=== PATIENT | female | born 1960 | race Caucasian/White ===

== ENCOUNTER 2020-09-21 08:18 | Observation (INO) | payer BC ==
[2020-09-21 11:00] VITALS: BMI 26.9
[2020-09-21] MEDS ORDERED: Acetaminophen 325 MG TAB PO PRN (11:06)
--- NOTE | 2020-09-21 11:26 | PDOC.HHP ---
Hospitalist HPI - History of Present Illness Chest pain History of Present Illness: Patient is a pleasant 60-year-old lady who was seen at the hospital on September 21, 2020 following transfer from emergency room at [place]. She reports that she was woken up from sleep around 4:30 AM because of chest d iscomfort. It was in the retrosternal region, pressure-like sensation, 4-5 out of 10, radiating across the chest but not to her jaw or shoulder. She denies any nausea or vomiting but reports that it was accompanied by shortness of breath. It lasted till she reached the emergency room, then resolved subsequently recurred twice. She cannot recall any aggravating or relieving factors. She reports that she has not had similar pain in the past. She did have a stress test about 20 years ago following a syncopal episode. She also reports being under more stress at this time. ED Course: VITAL SIGNS SatSep 21, 2020 08:43 CASSANDRA Fitzgerald, Yuridia BP: 108/63, Pulse: 62, Resp: 18, Temp: 98.1, Pain: 0, O2 sat: 99, Time: 09/21/2020 08:43. Hospitalist ROS - Review of Systems Constitutional: denies: fever, chills, sweats, weakness, malaise Respiratory: reports: shortness of breath. denies: cough, dry, hemoptysis, SOB with excertion, pleuritic pain, sputum, wheezing Cardiovascular: reports: chest pain. denies: palpitations, orthopnea, paroxysmal noc. dyspnea, edema, light headedness Gastrointestinal: denies: nausea, vomiting, abdominal pain, diarrhea, constipation, melena, hematochezia Genitourinary: denies: dysuria, frequency, incontinence, hematuria, retention All other systems reviewed; all pertinent +/- noted in HPI/Subj - Medication Medications: Allergies: Penicillin and sulfa Home medications: aspirin oral SatSep 21, 2020 06:08 CASSANDRA Wright Jeri TABLET : Strength - 81 mg : ORAL Patient Dose: 1 tab(s) Oral once a day. atorvastatin SatSep 21, 2020 06:08 CASSANDRA Wright Jeri TABLET : Strength - 40 mg : ORAL Patient Dose: 1 tab(s) Oral once a day (at bedtime). citalopram SatSep 21, 2020 06:08 CASSANDRA Wright Jeri TABLET : Strength - 20 mg : ORAL Patient Dose: 40 mg Oral once a day. Januvia SatSep 21, 2020 06:08 CASSANDRA Wright Jeri TABLET : Strength - 100 mg : ORAL Patient Dose: unk mg Oral once a day. levothyroxine oral SatSep 21, 2020 06:08 CASSANDRA Wright Jeri TABLET : Strength - 25 mcg : ORAL Patient Dose: 50 mcg Oral once a day. metFORMIN SatSep 21, 2020 06:08 CASSANDRA Wright Jeri TABLET : Strength - 500 mg : ORAL Patient Dose: 2 tab(s) Oral once a day (in the morning). traZODone SatSep 21, 2020 06:08 CASSANDRA Wright Jeri TABLET : Strength - 50 mg : ORAL Patient Dose: 1 tab(s) Oral once a day (in the morning). Benicar SatSep 21, 2020 06:15 CASSANDRA Wright Jeri TABLET : Strength - 20 mg : ORAL Patient Dose: 40 mg Oral once a day (in the morning). DULoxetine SatSep 21, 2020 06:15 CASSANDRA Wright Jeri CAPSULE,DELAYED RELEASE (ENTERIC COATED) : Strength - 60 mg : ORAL Patient Dose: 60 mg Oral once a day (at bedtime). famotidine oral SatSep 21, 2020 06:15 CASSANDRA Wright Jeri TABLET : Strength - 20 mg : ORAL Patient Dose: 20 mg Oral once a day. meloxicam SatSep 21, 2020 06:15 CASSANDRA Wright Jeri TABLET : Strength - 15 mg : ORAL Patient Dose: 1 tab(s) Oral once a day. Xyzal SatSep 21, 2020 06:15 CASSANDRA Wright Jeri TABLET : Strength - 5 mg : ORAL Patient Dose: 5 mg Oral once a day. Hospitalist History - Past Medical History Other Medical History: Past medical history: Hypothyroidism, dyslipidemia, hypertension and ischemic CVA, Diabetes mellitus type 2 Surgical history: Surgery for deviated nasal septum, tonsillectomy and hysterectomy. Family history: No family history of premature coronary artery disease Social history: Occasional alcohol use, no tobacco use or recreational drug use. - Exam General Appearance: NAD Eye: anicteric sclera ENT: no oropharyngeal lesions, moist mucosa Neck: supple, symmetric, no thyromegaly, no lymphadenopathy Heart: RRR, no murmur, no gallops, no rubs, normal peripheral pulses Respiratory: CTAB, no wheezes, no rales, no ronchi, normal chest expansion Gastrointestinal: soft, non-tender, non-distended, normal bowel sounds Neurological: cranial nerve grossly intact Psychiatric: normal affect, normal behavior, A&O x 3 Hospitalist Results - Labs Additional comment: I reviewed patient's labs and MAR - EKG Interpretation EKG: EKG by my review shows normal sinus rhythm, no ST changes to suggest an acute coronary syndrome. - Radiology Interpretation Chest x-ray Status: image reviewed by me Additional Comment: XR Chest 1 View Portable HISTORY: Chest pain COMPARISON: None FINDINGS: The heart size is normal. The lungs are well expanded without focal areas of consolidation, pneumothorax or pleural effusions. IMPRESSION: No radiographic evidence of acute cardiopulmonary process. Hospitalist H&P A/P - Problem (1) Chest pain Code(s): R07.9 - CHEST PAIN, UNSPECIFIED Status: Acute (2) Dyslipidemia Code(s): E78.5 - HYPERLIPIDEMIA, UNSPECIFIED Status: Chronic (3) Hypertension Code(s): I10 - ESSENTIAL (PRIMARY) HYPERTENSION Status: Chronic (4) Diabetes mellitus type 2 in nonobese Code(s): E11.9 - TYPE 2 DIABETES MELLITUS WITHOUT COMPLICATIONS Status: Chronic (5) Hypothyroidism Code(s): E03.9 - HYPOTHYROIDISM, UNSPECIFIED Status: Chronic - Plan Plan: Admit patient to telemetry on observation status. Stress test. Continue aspirin. Continue Synthroid. Continue home medications, monitor vital signs and titrate antihypertensives as needed. Depression mild, stable, continue duloxetine. Continue Lipitor. Start Accu-Cheks and insulin sliding scale. Level of risk: High Level of complexity: High Estimated length of stay in the hospital less than 2 midnights.
[2020-09-21 12:17] LABS: Troponin I Less than 0.010 ng/mL (< 0.028)
[2020-09-21] MEDS ORDERED: Dextrose 50% Abboject 50 ML SYRINGE SLOW IVP PRN (12:23)
[2020-09-21] MEDS ORDERED: Dextrose 5% in Water 1,000 ML IV PRN (12:23)
[2020-09-21] MEDS ORDERED: HumaLOG 300 UNITS/3 ML VIAL SC PRN (12:23)
[2020-09-21 19:34] LABS: SARS-CoV-2 MS2 Positive; SARS-CoV-2 N Gene Negative; SARS-CoV-2 S Gene Negative; SARS-CoV-2 by NAA Not Detected (NotDetected); SARS-CoV-2 orf1ab Negative
[2020-09-21 19:40] LABS: Troponin I Less than 0.010 ng/mL (< 0.028)
[2020-09-21] MEDS ORDERED: Sodium Chloride 0.9% 10 ML ONE (20:40)
[2020-09-21] MEDS ORDERED: traZODone HCl 50 MG TAB PO SCH (21:00)
[2020-09-21] MEDS ORDERED: Atorvastatin Calcium 40 MG TAB PO SCH (21:00)
[2020-09-22 04:58] LABS: #Eosinphils 0.3 thou/uL (0.0-0.7); #Lymphocytes 2.5 thou/uL (1.20-3.40); #Monocytes 0.5 thou/uL (0.11-0.59); #Neutrophils 3.1 thou/uL (1.40-6.50); %Basophils 0.5 % (0.0-1.0); %Eosinophils 5.2 % (0.0-10.0); %Monocytes 7.2 % (0.0-10.0); %Neutrophils 48.1 % (42.0-75.0); Hemoglobin 12.8 g/dL (12.0-16.0); Mean Corpuscular HGB CONC 33.8 g/dL (32.0-36.0); Mean Corpuscular Hemoglobin 32.1 pg (27.0-31.0); Mean Platelet Volume 6.8 fL (7.4-10.4); Platelet Count 290 thou/uL (130-400); RBC Distribution Width 11.8 % (11.5-14.5); White Blood Cell (WBC) Count 6.4 thou/uL (4.8-10.8)
[2020-09-22 05:25] LABS: Anion Gap 14 mmol/L (10-20); BUN (Urea Nitrogen) 22 mg/dL (9.8-20.1); Calc. Creatinine Clearance 72 mL/min (70-130); Calcium 9.4 mg/dL (7.8-10.44); Carbon Dioxide 28 mmol/L (22-29); Chloride 103 mmol/L (98-107); Glucose 111 mg/dL (70-105); Potassium 4.8 mmol/L (3.5-5.1); Sodium 140 mmol/L (136-145)
[2020-09-22] MEDS ORDERED: Levothyroxine Sodium 25 MCG TAB PO SCH (06:00)
[2020-09-22] MEDS ORDERED: metFORMIN 500 MG TAB PO SCH (08:00)
[2020-09-22] MEDS ORDERED: Aspirin 81 mg Enteric Coated Tablet PO SCH (09:00)
[2020-09-22] MEDS ORDERED: Citalopram 20 MG TAB PO SCH (09:00)
[2020-09-22] MEDS ORDERED: Loratadine 10 MG TAB PO SCH (09:00)
[2020-09-22] MEDS ORDERED: Alogliptin 25 MG TAB PO SCH (09:00)
[2020-09-22] MEDS ORDERED: Famotidine 20 MG TAB PO SCH (09:00)
[2020-09-22] MEDS ORDERED: Losartan 25 MG TAB PO SCH (09:00)
[2020-09-22] MEDS ORDERED: Enoxaparin Sodium 40 MG/0.4 ML SYRINGE SC SCH (09:00)
[2020-09-22] MEDS ORDERED: Meloxicam 15 MG TAB PO SCH (09:00)
[2020-09-22] MEDS ORDERED: DULoxetine 60 MG CAP PO SCH (09:00)
[2020-09-22] MEDS ORDERED: FLU VACC QS2020-21(6MOS UP)/PF 60 MCG/0.5 ML SYRINGE IM ONE (11:15)
--- NOTE | 2020-09-22 11:22 | NM ---
CARDIAC SPECT: CLINICAL HISTORY: 60-year-old female with chest pain, hypertension, diabetes, and dyslipidemia. TECHNIQUE: A myocardial perfusion scan was performed using the single isotope two day protocol with 33 mCi techn etium-99m sestamibi injected intravenously for both stress and rest images. Pharmacologic stress with Adenosine was monitored and interpreted by Dr. Whitaker. FINDINGS: Homogeneous tracer distribution is seen in the myocardial segments on stress and rest images without fixed or reversible defects. GATED SPECT LVEF: 87%. WALL MOTION EXAM: Normal. IMPRESSION: Normal myocardial perfusion scan. POS: AH
[2020-09-22] MEDS ORDERED: ADENOSINE 60 MG/20 ML VIAL ONE (12:56)
[2020-09-22 15:13] VITALS: BP 121/74; TEMP 98.3
--- NOTE | 2020-09-22 16:37 | PDOC.DS.DS ---
Provider - Provider Date of Admission: 09/21/20 08:18 Date of Discharge: 09/22/20 Admitting Provider: Simon Douglass MD Primary Care Physician: OUT OF TOWN Course - Hospital Course Hospital Course: Discharge diagnosis: 1. Chest pain 2. Chest pain secondary to musculoskeletal etiology 3. Acute kidney injury 4. COVID-19 PCR test negative Hospital course: Patient is a pleasant 60-year-old lady who was admitted to the hospital on September 21, 2020 for chest pain. COVID-19 was ruled out with PCR test. Nuclear stress test was normal, with left ventricular ejection fraction of 87%. Her chest pain resolved following admission. Pulmonary embolism was ruled out with a negative D-dimer. She is being discharged home in a stable condition. Discharge destination: Home - Labs Lab Results: 09/22/20 04:08 09/22/20 04:09 Abnormal Lab Results - Last 48 hrs 09/22/20 04:08: RBC 4.00 L, MCH 32.1 H, MPV 6.8 L 09/22/20 04:09: BUN 22 H - Physical Exam Vitals: Vital Signs (12 hours) Temp Pulse Resp BP Pulse Ox 09/22/20 15:05 98.3 F 101 H 18 121/74 95 09/22/20 10:38 98.4 F 81 16 115/65 96 09/22/20 07:50 98.4 F 82 16 122/62 97 Weight Weight 152 lb Physical Exam: The patient was seen and examined on the day of discharge. Patient denies chest pain or shortness of breath. Vital signs are stable. S1 and S2 are heard. Lungs are clear to auscultation bilaterally. Problem - Problem (1) Chest pain Code(s): R07.9 - CHEST PAIN, UNSPECIFIED Status: Acute (2) Dyslipidemia Code(s): E78.5 - HYPERLIPIDEMIA, UNSPECIFIED Status: Chronic (3) Hypertension Code(s): I10 - ESSENTIAL (PRIMARY) HYPERTENSION Status: Chronic (4) Diabetes mellitus type 2 in nonobese Code(s): E11.9 - TYPE 2 DIABETES MELLITUS WITHOUT COMPLICATIONS Status: Chronic (5) Hypothyroidism Code(s): E03.9 - HYPOTHYROIDISM, UNSPECIFIED Status: Chronic Plan - Discharge Medications Home Medications: Medication Instructions Recorded Confirmed Type Aspirin [Ecotrin] 81 mg PO DAILY 09/21/20 09/21/20 History Atorvastatin Calcium [Lipitor] 40 mg PO HS 09/21/20 09/21/20 History Citalopram [CeleXA] 20 mg PO DAILY 09/21/20 09/21/20 History DULoxetine [Cymbalta] 60 mg PO DAILY 09/21/20 09/21/20 History Famotidine 20 mg PO DAILY 09/21/20 09/21/20 History Levocetirizine Dihydrochloride 5 mg PO DAILY 09/21/20 09/21/20 History [Xyzal] Levothyroxine Sodium 25 mcg PO DAILY 09/21/20 09/21/20 History [Levothyroxine] Meloxicam 15 mg PO DAILY 09/21/20 09/21/20 History Olmesartan Medoxomil [Benicar] 20 mg PO DAILY 09/21/20 09/21/20 History metFORMIN [Glucophage] 500 mg PO QAM-WM 09/21/20 09/21/20 History sitaGLIPtin Phosphate [Januvia] 100 mg PO DAILY 09/21/20 09/21/20 History traZODone HCl [Trazodone HCl] 50 mg PO HS 09/21/20 09/21/20 History Allergies: Penicillins Allergy (Verified 09/21/20 10:48) Sulfa (Sulfonamide Antibiotics) Allergy (Verified 09/21/20 10:48) - Discharge Instructions Activity:: Activity as Tolerated Nourishment:: Diabetic Diet, Heart Healthy Diet - Follow up Plan Referrals: TOWN PHYSICIAN,OUT OF [Primary Care Provider] - 3 Days (Please call the office to make an appointment to see your PCP within 3 days.) Disposition: HOME Quality - Care Measures CORE MEASURES:: N/A
== END 2020-09-22 17:20 | disposition home or self-care (01) ==
LOC: 2NO 08:18
PROVIDERS: ADMIT Internal Medicine; ATTEND Internal Medicine
DX: R07.89 Other chest pain (principal); E78.5 Hyperlipidemia, unspecified; I10 Essential (primary) hypertension; E11.9 Type 2 diabetes mellitus without complications; E03.9 Hypothyroidism, unspecified; F32.9 Major depressive disorder, single episode, unspecified; N17.9 Acute kidney failure, unspecified; Z79.82 Long term (current) use of aspirin; Z79.84 Long term (current) use of oral hypoglycemic drugs; Z79.899 Other long term (current) drug therapy; Z88.0 Allergy status to penicillin; Z88.2 Allergy status to sulfonamides; Z20.828 Contact with and (suspected) exposure to other viral communicable diseases
CPT/HCPCS: 36415; 36416; 78452; 80048; 85025; 85379; 87635; 90471; 90662; 93017; 96372; A9500; G0008; G0378; J0153; J1650; U0003